=== PATIENT | female | born 1945 | race Caucasian/White ===

== ENCOUNTER → 2020-07-20 | Outpatient (CLI) | payer MEDICARE ==
[~2020-07-20] MED LIST: AEC81 PO; ALLO100T PO; CAND1TAB34 PO; GLIM2TAB PO; INDO-15 PO; ISOS60TA77 PO; LANTUS SQ; LEVO150 PO; LORA0.5T2 PO; MAGNESIUM OXIDE PO; METF-444 PO; MULT-1258 PO
== END | disposition home or self-care (01) ==
LOC: SHCH 12:58
PROVIDERS: ATTEND Internal Medicine Cardiovascular Disease
DX: R01.1 Cardiac murmur, unspecified (principal)
CPT/HCPCS: 93306; 93356

== ENCOUNTER 2020-08-31 10:00 | Observation (INO) | payer MEDICARE ==
[~2020-08-31] VITALS: Ht 167.6 cm; Wt 86.0 kg
[~2020-08-31 10:00] MED LIST changes: -LORA0.5T2 PO; -MAGNESIUM OXIDE PO
[2020-08-31 10:13] LABS: BASOPHILS % (AUTO) 1.4 % (0.0-5.0); EOSINOPHILS % (AUTO) 3.7 % (0.0-8.0); HEMATOCRIT 46.5 % (36-48); MEAN CORPUSCULAR HEMOGLOBIN 30.6 pg (27.0-33.0); MEAN CORPUSCULAR HGB CONC 32.7 g/dL (32.0-36.0); MEAN CORPUSCULAR VOLUME 93.6 fL (79-99); MONOCYTES % (AUTO) 8.1 % (3.0-13.0); NEUTROPHILS % (AUTO) 70.2 % (40.0-77.0); PLATELET COUNT (AUTO) 331 K/uL (130-400); RED BLOOD CELL COUNT(AUTO) 4.97 MIL/uL (4.00-5.50); RED CELL DISTRIBUTION WIDTH 13.4 % (11.0-15.5); WHITE BLOOD COUNT (AUTO) 8.8 K/uL (4.8-10.8)
[2020-08-31 10:32] LABS: APPEARANCE,URINE Clear (CLEAR); BILIRUBIN,URINE Negative (NEGATIVE); COLOR,URINE Yellow (YELLOW); GLUCOSE, URINE (UA) >=1000 mg/dL (NEGATIVE); KETONES,URINE Negative (NEGATIVE); LEUKOCYTE ESTERASE ,URINE Negative (NEGATIVE); NITRATE,URINE Negative (NEGATIVE); OCCULT BLOOD,URINE Negative (NEGATIVE); PROTEIN,URINE Negative (NEGATIVE); UROBILINOGEN,URINE 0.2 mg/dL (0.2-1.0)
[2020-08-31 10:37] LABS: PROTHROMBIN TIME 10.9 SEC (9.6-11.6)
[2020-08-31 10:38] LABS: BACTERIA,URINE Rare /HPF (None Seen); RBC,URINE 0-1 /HPF (0-1); SQUAMOUS EPITHELIAL CELL,UR Rare /HPF (0-2); WBC,URINE 0-1 /HPF (0-1)
[2020-08-31 13:40] LABS: CREATININE 1.2 mg/dL (0.5-1.5); POTASSIUM 4.5 mmol/L (3.5-5.1)
[2020-09-01 09:43] VITALS: BP 135/74
[2020-09-01] MEDS ORDERED: EMPA25TA PO (13:13)
[2020-09-01] MEDS ORDERED: MAGN400T51 PO ×2 (13:13)
[2020-09-01] MEDS ORDERED: ELDERBERRY PO (13:13)
[2020-09-01] MEDS ORDERED: VITAMIN D3 PO (13:13)
[2020-09-01] MEDS ORDERED: CYAN250010 PO (13:13)
[2020-09-01] MEDS ORDERED: ZINC50TA15 PO (13:13)
[2020-09-01] MEDS ORDERED: ASCO100031 PO (13:13)
[2020-09-01] MEDS ORDERED: IRON PO (13:13)
[2020-09-01] MEDS ORDERED: BIOT10006 PO (13:13)
[2020-09-04] VITALS (23 sets, daily range): BP systolic 101–143; BP diastolic 57–75
[2020-09-04] MEDS: CEFAZOLIN SODIUM 1 GM VIAL IVP SCH ×3 (06:00→19:20)
[2020-09-04] MEDS ORDERED: 0.9%NACL 1000ML 1,000 ML IV ONE (06:57)
[2020-09-04] MEDS: VANCOMYCIN 1G 1.25 GM in 0.9% NACL 250ML 250 ML IV SCH ×2 (07:15→09:30)
[2020-09-04] MEDS ORDERED: CEFAZOLIN SODIUM 1 GM VIAL ONE (08:54)
[2020-09-04] MEDS ORDERED: MIDAZOLAM HCL 1 MG/ML 2ML VIAL ONE (09:36)
[2020-09-04] MEDS ORDERED: ONDANSETRON 4MG INJ ONE (09:36)
[2020-09-04] MEDS ORDERED: LIDOCAINE PF 100MG/5ML (2%) SYRINGE 5ML ONE (09:41)
[2020-09-04] MEDS ORDERED: PROPOFOL 10 MG/ML 20ML VIAL IV ONE (09:42)
[2020-09-04] MEDS ORDERED: ROCURONIUM 10MG/1ML SYR 10 MG/ML ML ONE ×2 (09:42→10:42)
[2020-09-04] MEDS ORDERED: ROPIVACAINE 0.5% 5MG/ML 30ML IJ ONE (09:47)
[2020-09-04] MEDS ORDERED: DEXAMETHASONE SOD PHOSPHATE 4 MG/ML 1ML VIAL ONE ×2 (10:00→13:38)
[2020-09-04] MEDS ORDERED: TRANEXAMIC ACID 1000MG/10ML ONE ×2 (10:29→14:21)
[2020-09-04] MEDS ORDERED: GLYCOPYRROLATE 1 MG/5 ML SYRINGE ONE ×2 (10:43→13:37)
[2020-09-04] MEDS ORDERED: EPHEDRINE SULFATE 50 MG/ML AMPULE ONE (10:48)
[2020-09-04] MEDS ORDERED: VANCOMYCIN 1G VIAL ONE (13:01)
[2020-09-04] MEDS ORDERED: NEOSTIGMINE 5MG/5ML SYR IV ONE (13:36)
[2020-09-04] MEDS ORDERED: MEPERIDINE-PF 25 MG/ML SYG ONE (13:36)
[2020-09-04] MEDS ORDERED: CALCIUM CARB 500MG PO PRN (13:45)
[2020-09-04] MEDS ORDERED: TEMAZEPAM 15 MG CAPSULE PO PRN (13:45)
[2020-09-04] MEDS ORDERED: POTASSIUM CHLORIDE 10% ELIXIR 20 MEQ/15 ML UDCUP PO PRN (13:45)
[2020-09-04] MEDS ORDERED: ONDANSETRON 4MG INJ IVP PRN (13:45)
[2020-09-04] MEDS ORDERED: POTASSIUM CHLORIDE 20MEQ/100ML 100 ML IV PRN (13:45)
[2020-09-04] MEDS ORDERED: FE FUMARATE/FA/MV, MIN COMB#15 1 TAB PO PRN (13:45)
[2020-09-04] MEDS: ACETAMINOPHEN 500 MG TABLET PO SCH ×2 (13:45→21:46)
[2020-09-04] MEDS ORDERED: KETOROLAC 15MG/ML VIAL (15MG/ML) IV PRN (13:45)
[2020-09-04] MEDS ORDERED: OXYCODONE HCL 5 MG TAB PO PRN (13:45)
[2020-09-04] MEDS ORDERED: DiphenhydrAMINE HCL 50 MG/ML VIAL IVP PRN (13:45)
[2020-09-04] MEDS ORDERED: KCL 20 MEQ ERTAB PO PRN (13:45)
[2020-09-04] MEDS ORDERED: LIDOCAINE HCL-MPF 1% 2ML VIAL IV PRN (13:45)
[2020-09-04] MEDS: 0.9%NACL 1000ML 1,000 ML IV SCH (15:41)
[2020-09-04] MEDS: INSULIN HUMULIN R 100 UNIT/ML 3ML SQ SCH ×2 (16:30→21:43)
[2020-09-04] MEDS: METFORMIN HCL 500 MG TABLET PO SCH ×2 (16:39→21:07)
[2020-09-04] MEDS: HYDROCHLOROTHIAZID PO SCH (16:39)
[2020-09-04] MEDS: CANDESARTAN PO SCH (16:39)
[2020-09-04] MEDS: GLIMEPIRIDE 2 MG TABLET PO SCH (16:39)
[2020-09-04] MEDS: MAGNESIUM OXIDE 400 MG TABLET PO SCH (16:46)
[2020-09-04] MEDS ORDERED: MAGNESIUM OXIDE 400 MG TABLET PO SCH ×2 (17:00)
[2020-09-04] MEDS: VANCOMYCIN KIT 250 ML IV SCH (20:56)
[2020-09-04] MEDS ORDERED: LANTUS SQ SCH (21:00)
[2020-09-04] MEDS: INSULIN GLARGINE 100 UNITS/ML 10 ML VIAL SQ SCH (21:05)
[2020-09-04] MEDS: FAMOTIDINE 20MG TAB PO SCH (21:07)
[2020-09-04] MEDS: ALLOPURINOL 100 MG TABLET PO SCH (21:07)
[2020-09-04] MEDS: INDOMETHACIN 25 MG CAP PO SCH (21:07)
[2020-09-04] MEDS: ASPIRIN 81MG CHEW TAB PO SCH (21:07)
[2020-09-04] MEDS: ISOSORBIDE MONO 60MG SR TAB PO SCH (21:07)
[2020-09-04] MEDS: MULTIVITAMIN WITH MINERALS TABLET PO SCH (21:07)
[2020-09-04] MEDS: PREGABALIN 25 MG CAP PO SCH (21:08)
[2020-09-04] MEDS: TRAMADOL HCL 50 MG TABLET PO PRN (21:09)
[2020-09-05] MEDS: CEFAZOLIN SODIUM 1 GM VIAL IVP SCH (03:28)
[2020-09-05] MEDS: 0.9%NACL 1000ML 1,000 ML IV SCH ×2 (03:30→09:45)
[2020-09-05 04:17] VITALS: BP 128/65
[2020-09-05 04:17] LABS: HEMATOCRIT 38.9 % (36-48); MEAN CORPUSCULAR HEMOGLOBIN 29.4 pg (27.0-33.0); MEAN CORPUSCULAR HGB CONC 31.9 g/dL (32.0-36.0); MEAN CORPUSCULAR VOLUME 92.2 fL (79-99); RED BLOOD CELL COUNT(AUTO) 4.22 MIL/uL (4.00-5.50); RED CELL DISTRIBUTION WIDTH 13.5 % (11.0-15.5); WHITE BLOOD COUNT (AUTO) 11.7 K/uL (4.8-10.8)
[2020-09-05 04:27] LABS: CREATININE 1.2 mg/dL (0.5-1.5); POTASSIUM 4.4 mmol/L (3.5-5.1)
[2020-09-05] MEDS: ACETAMINOPHEN 500 MG TABLET PO SCH ×2 (06:16→22:02)
[2020-09-05] MEDS: INSULIN HUMULIN R 100 UNIT/ML 3ML SQ SCH ×4 (06:16→21:00)
[2020-09-05] MEDS: LEVOTHYROXINE 150 MCG TABLET PO SCH (07:00)
[2020-09-05] MEDS: VANCOMYCIN KIT 250 ML IV SCH (07:00)
[2020-09-05 08:28] VITALS: BP 108/59
[2020-09-05] MEDS: INSULIN GLARGINE 100 UNITS/ML 10 ML VIAL SQ SCH ×2 (09:00→22:05)
[2020-09-05] MEDS: VITAMIN D3 2000 UNIT PO SCH (09:00)
[2020-09-05] MEDS: METFORMIN HCL 500 MG TABLET PO SCH ×4 (09:00→21:59)
[2020-09-05] MEDS: BIOTIN 10000 MCG PO SCH (09:00)
[2020-09-05] MEDS: ***HM*** (Empagliflozin (Jardiance) 25 MG) PO SCH (09:00)
[2020-09-05] MEDS: CANDESARTAN PO SCH (10:15)
[2020-09-05] MEDS: HYDROCHLOROTHIAZID PO SCH (10:15)
[2020-09-05] MEDS: FERROUS SULFATE 325 MG TABLET.DR PO SCH (10:18)
[2020-09-05] MEDS: ASPIRIN 81MG CHEW TAB PO SCH ×2 (10:18→21:59)
[2020-09-05] MEDS: POLYETHYLENE GLYCOL 3350 17 GM POWD.PACK PO SCH (10:18)
[2020-09-05] MEDS: OXYCODONE HCL 5 MG TAB PO PRN (10:21)
[2020-09-05] MEDS: PREGABALIN 25 MG CAP PO SCH ×2 (10:21→21:59)
[2020-09-05] MEDS: MAGNESIUM OXIDE 400 MG TABLET PO SCH ×3 (10:21→17:12)
[2020-09-05] MEDS: GLIMEPIRIDE 2 MG TABLET PO SCH ×2 (10:21→17:12)
[2020-09-05] MEDS: CYANOCOBALAMIN (VITAMIN B-12) 1,000 MCG TABLET PO SCH (10:22)
[2020-09-05] MEDS: MULTIVITAMIN WITH MINERALS TABLET PO SCH ×2 (10:22→21:59)
[2020-09-05] MEDS: ASCORBIC ACID 500 MG TAB PO SCH (10:22)
[2020-09-05 11:45] VITALS: BP 102/60
[2020-09-05] MEDS ORDERED: MAGNESIUM OXIDE 800 MG PO SCH (12:00)
[2020-09-05] MEDS: TRAMADOL HCL 50 MG TABLET PO PRN (13:21)
[2020-09-05 17:11] VITALS: BP 107/57
[2020-09-05 20:08] VITALS: BP 110/54
[2020-09-05] MEDS: ALLOPURINOL 100 MG TABLET PO SCH (21:59)
[2020-09-05] MEDS: INDOMETHACIN 25 MG CAP PO SCH (22:00)
[2020-09-05] MEDS: FAMOTIDINE 20MG TAB PO SCH (22:00)
[2020-09-05] MEDS: ISOSORBIDE MONO 60MG SR TAB PO SCH (22:00)
[2020-09-05] MEDS ORDERED: BISACODYL 5 MG TABLET.DR PO ONE (22:27)
[2020-09-05 23:34] VITALS: BP 123/57
[2020-09-06 03:55] VITALS: BP 124/57
[2020-09-06] MEDS: ACETAMINOPHEN 500 MG TABLET PO SCH ×3 (05:45→20:48)
[2020-09-06] MEDS: INSULIN HUMULIN R 100 UNIT/ML 3ML SQ SCH ×4 (07:23→21:00)
[2020-09-06] MEDS: LEVOTHYROXINE 150 MCG TABLET PO SCH (07:30)
[2020-09-06] MEDS: FERROUS SULFATE 325 MG TABLET.DR PO SCH (07:35)
[2020-09-06] MEDS: GLIMEPIRIDE 2 MG TABLET PO SCH ×2 (07:36→16:37)
[2020-09-06] MEDS: MULTIVITAMIN WITH MINERALS TABLET PO SCH ×2 (07:36→21:00)
[2020-09-06] MEDS: METFORMIN HCL 500 MG TABLET PO SCH ×4 (07:36→21:00)
[2020-09-06] MEDS: VITAMIN D3 2000 UNIT PO SCH (07:37)
[2020-09-06] MEDS: ***HM*** (Empagliflozin (Jardiance) 25 MG) PO SCH (07:37)
[2020-09-06] MEDS: PREGABALIN 25 MG CAP PO SCH ×2 (07:37→21:26)
[2020-09-06] MEDS: BIOTIN 10000 MCG PO SCH (07:37)
[2020-09-06] MEDS: CYANOCOBALAMIN (VITAMIN B-12) 1,000 MCG TABLET PO SCH (07:38)
[2020-09-06] MEDS: ASCORBIC ACID 500 MG TAB PO SCH (07:38)
[2020-09-06] MEDS: MAGNESIUM OXIDE 400 MG TABLET PO SCH ×3 (07:43→16:37)
[2020-09-06] MEDS: ASPIRIN 81MG CHEW TAB PO SCH ×2 (07:43→21:00)
[2020-09-06 08:00] VITALS: BP 121/68
[2020-09-06] MEDS: POLYETHYLENE GLYCOL 3350 17 GM POWD.PACK PO SCH (08:02)
[2020-09-06] MEDS: OXYCODONE HCL 5 MG TAB PO PRN ×4 (08:03→21:24)
[2020-09-06] MEDS: INSULIN GLARGINE 100 UNITS/ML 10 ML VIAL SQ SCH ×2 (08:08→21:34)
[2020-09-06 12:00] VITALS: BP 114/64
[2020-09-06] MEDS ORDERED: BISACODYL 10 MG SUPP.RECT RC ONE (12:44)
[2020-09-06 16:00] VITALS: BP 132/72
[2020-09-06] MEDS: CANDESARTAN PO SCH (16:37)
[2020-09-06] MEDS: HYDROCHLOROTHIAZID PO SCH (16:37)
[2020-09-06] MEDS ORDERED: HYDR-4060 PO (18:36)
[2020-09-06 20:08] VITALS: BP 134/62
[2020-09-06] MEDS: ISOSORBIDE MONO 60MG SR TAB PO SCH (21:00)
[2020-09-06] MEDS: FAMOTIDINE 20MG TAB PO SCH (21:00)
[2020-09-06] MEDS: ALLOPURINOL 100 MG TABLET PO SCH (21:00)
[2020-09-06] MEDS: INDOMETHACIN 25 MG CAP PO SCH (21:00)
[2020-09-07 00:08] VITALS: BP 133/62
[2020-09-07 04:08] VITALS: BP 101/59
[2020-09-07] MEDS: LEVOTHYROXINE 150 MCG TABLET PO SCH (05:27)
[2020-09-07] MEDS: ACETAMINOPHEN 500 MG TABLET PO SCH (05:27)
[2020-09-07] MEDS: INSULIN HUMULIN R 100 UNIT/ML 3ML SQ SCH (05:31)
[2020-09-07 08:00] VITALS: BP 116/63
[2020-09-07] MEDS: GLIMEPIRIDE 2 MG TABLET PO SCH (08:00)
[2020-09-07] MEDS: FERROUS SULFATE 325 MG TABLET.DR PO SCH (08:00)
[2020-09-07] MEDS: MAGNESIUM OXIDE 400 MG TABLET PO SCH (08:00)
[2020-09-07] MEDS: MULTIVITAMIN WITH MINERALS TABLET PO SCH (08:34)
[2020-09-07] MEDS: BIOTIN 10000 MCG PO SCH (08:34)
[2020-09-07] MEDS: ***HM*** (Empagliflozin (Jardiance) 25 MG) PO SCH (08:34)
[2020-09-07] MEDS: VITAMIN D3 2000 UNIT PO SCH (08:34)
[2020-09-07] MEDS: METFORMIN HCL 500 MG TABLET PO SCH (08:34)
[2020-09-07] MEDS: ASCORBIC ACID 500 MG TAB PO SCH (08:35)
[2020-09-07] MEDS: CYANOCOBALAMIN (VITAMIN B-12) 1,000 MCG TABLET PO SCH (08:35)
[2020-09-07] MEDS: PREGABALIN 25 MG CAP PO SCH (08:46)
[2020-09-07] MEDS: OXYCODONE HCL 5 MG TAB PO PRN (08:46)
[2020-09-07] MEDS: ASPIRIN 81MG CHEW TAB PO SCH (08:47)
[2020-09-07] MEDS: POLYETHYLENE GLYCOL 3350 17 GM POWD.PACK PO SCH (08:47)
[2020-09-07] MEDS: INSULIN GLARGINE 100 UNITS/ML 10 ML VIAL SQ SCH (08:53)
[2020-09-07] MEDS ORDERED: BISACODYL 10 MG SUPP.RECT RC PRN (13:45)
== END 2020-09-07 12:34 | disposition home or self-care (01) ==
LOC: EDSTATUS 10:00 → OBSVTOIN 09-04 06:18 → DAHIP 09-04 06:18 → INTOOBSV 09-04 06:18 → 4AH 09-04 15:01
PROVIDERS: ADMIT Orthopaedic Surgery; ATTEND Orthopaedic Surgery
DX: M75.101 Unspecified rotator cuff tear or rupture of right shoulder, not specified as traumatic (principal); Z20.822 Contact with and (suspected) exposure to COVID-19; I10 Essential (primary) hypertension; E78.5 Hyperlipidemia, unspecified; E11.9 Type 2 diabetes mellitus without complications; E03.9 Hypothyroidism, unspecified; D64.9 Anemia, unspecified; G89.29 Other chronic pain; Z96.612 Presence of left artificial shoulder joint; Z96.611 Presence of right artificial shoulder joint; Z96.643 Presence of artificial hip joint, bilateral; Z90.710 Acquired absence of both cervix and uterus; Z90.49 Acquired absence of other specified parts of digestive tract; Z79.899 Other long term (current) drug therapy; Z82.49 Family history of ischemic heart disease and other diseases of the circulatory system
CPT/HCPCS: 23474; 36415 ×2; 73030; 80048 ×2; 81001; 82948 ×14; 85025; 85027; 85610; 87070; 87076; 87088; 87205; 87641; 88300; 96361 ×4; 96365; 96366 ×2; 96375 ×2; 96376; 97039 ×3; 97116 ×3; 97161; 97530 ×5; A4215; A4221; A4222; A4223; A4565; A4649 ×3; A4663; A4930 ×4; A6206; C1713 ×3; C1776 ×4; G0168; G0378 ×48; G8978; G8979; G8980; G8981; G8982; G8983; J0690 ×4; J1100 ×2; J1815 ×2; J1885; J2001; J2175; J2250; J2405 ×2; J2704; J2710; J2795; J3370 ×4; J3490 ×4; J7030 ×2; J7040; J7050; U0003

== ENCOUNTER → 2020-10-30 | Outpatient (CLI) | payer MEDICARE ==
[~2020-10-30] MED LIST changes: +ASCO100031 PO; +BIOT10006 PO; +CYAN250010 PO; +ELDERBERRY PO; +EMPA25TA PO; +HYDR-4060 PO; +IRON PO; +MAGN400T51 PO; +VITAMIN D3 PO; +ZINC50TA15 PO
== END | disposition home or self-care (01) ==
LOC: SHCH 09:20
PROVIDERS: ATTEND Internal Medicine Cardiovascular Disease
DX: Z09 Encounter for follow-up examination after completed treatment for conditions other than malignant neoplasm (principal); I87.2 Venous insufficiency (chronic) (peripheral)
CPT/HCPCS: 93971

== ENCOUNTER → 2020-11-20 | Outpatient (CLI) | payer MEDICARE | END | disposition home or self-care (01) | LOC: SHCH 13:05 | PROVIDERS: ATTEND Internal Medicine Cardiovascular Disease | DX: Z09 Encounter for follow-up examination after completed treatment for conditions other than malignant neoplasm (principal); I87.2 Venous insufficiency (chronic) (peripheral) | CPT/HCPCS: 93971 ==

== ENCOUNTER → 2021-03-19 | Outpatient (CLI) | payer MEDICARE | END | disposition home or self-care (01) | LOC: SHCH 08:38 | PROVIDERS: ATTEND Internal Medicine Cardiovascular Disease | DX: I87.2 Venous insufficiency (chronic) (peripheral) (principal); Z09 Encounter for follow-up examination after completed treatment for conditions other than malignant neoplasm; Z98.890 Other specified postprocedural states | CPT/HCPCS: 93970 ==

== ENCOUNTER → 2021-06-25 | Outpatient (CLI) | payer MEDICARE | END | disposition home or self-care (01) | LOC: RAH 10:49 | PROVIDERS: ATTEND Internal Medicine Gastroenterology | DX: K30 Functional dyspepsia (principal) | CPT/HCPCS: 78264; A9541 ==

== ENCOUNTER → 2022-03-14 | Outpatient (CLI) | payer MEDICARE | END | disposition home or self-care (01) | LOC: RAH 15:17 | PROVIDERS: ATTEND Anesthesiology Pain Medicine | DX: M47.812 Spondylosis without myelopathy or radiculopathy, cervical region (principal); M54.2 Cervicalgia | CPT/HCPCS: 72040 ==

== ENCOUNTER 2022-04-09 14:00 | Observation (INO) | payer MEDICARE ==
[~2022-04-09] VITALS: Ht 162.6 cm; Wt 84.5 kg
[2022-04-09 10:31] LABS: BASOPHILS % (AUTO) 1.2 % (0.0-5.0); EOSINOPHILS % (AUTO) 2.5 % (0.0-8.0); HEMATOCRIT 47.3 % (36-48); LYMPHOCYTES % (AUTO) 17.9 % (21.0-51.0); MEAN CORPUSCULAR HGB CONC 32.1 g/dL (32.0-36.0); MEAN CORPUSCULAR VOLUME 93.3 fL (79-99); MONOCYTES % (AUTO) 7.9 % (3.0-13.0); NEUTROPHILS % (AUTO) 69.4 % (40.0-77.0); PLATELET COUNT (AUTO) 329 K/uL (130-400); RED BLOOD CELL COUNT(AUTO) 5.07 MIL/uL (4.00-5.50); RED CELL DISTRIBUTION WIDTH 13.5 % (11.0-15.5)
[2022-04-09 10:44] LABS: INR 0.95 (0.85-1.15); PROTHROMBIN TIME 10.4 SEC (9.6-11.6)
[2022-04-09 10:45] LABS: PARTIAL THROMBOPLASTIN TIME 28.9 SEC (26.3-35.5)
[2022-04-09 10:49] LABS: APPEARANCE,URINE CLEAR (CLEAR); BILIRUBIN,URINE NEGATIVE (NEGATIVE); COLOR,URINE LIGHT-YELLOW (YELLOW); GLUCOSE, URINE (UA) >=1000 mg/dL (NEGATIVE); KETONES,URINE NEGATIVE (NEGATIVE); LEUKOCYTE ESTERASE ,URINE NEGATIVE Leu/uL (NEGATIVE); NITRATE,URINE NEGATIVE (NEGATIVE); OCCULT BLOOD,URINE NEGATIVE (NEGATIVE); PROTEIN,URINE NEGATIVE (NEGATIVE); UROBILINOGEN,URINE 0.2 mg/dL (0.2-1.0)
[2022-04-09 10:54] LABS: ALBUMIN 3.9 g/dL (3.5-5.0); CREATININE 1.2 mg/dL (0.5-1.5); CRP QUANTITATIVE 2.8 mg/L (0.00-9.0); POTASSIUM 4.2 mmol/L (3.5-5.1)
[2022-04-09 10:55] LABS: BACTERIA,URINE RARE /HPF (None Seen); MUCUS,URINE RARE LPF (None Seen); SQUAMOUS EPITHELIAL CELL,UR RARE /HPF (0-2); WBC,URINE 0-1 /HPF (0-1)
[2022-04-09 11:04] VITALS: BP 122/61
[~2022-04-09 14:00] MED LIST changes: -ASCO100031 PO; -BIOT10006 PO; -CYAN250010 PO; +CYAN250014 PO; -ELDERBERRY PO; -HYDR-4060 PO; -INDO-15 PO; +INSLAN SQ; -IRON PO; -LANTUS SQ; -VITAMIN D3 PO; -ZINC50TA15 PO
[2022-04-10] VITALS (23 sets, daily range): BP systolic 90–131; BP diastolic 54–86
[2022-04-10] MEDS ORDERED: 0.9%NACL 1000ML 1,000 ML IV ONE (09:06)
[2022-04-10] MEDS: CEFAZOLIN SODIUM 2 GM VIAL IVPB SCH ×2 (09:44→13:28)
[2022-04-10] MEDS ORDERED: REGADENOSON 0.4 MG/5 ML PF SYG IVP SCH (10:00)
[2022-04-10] MEDS ORDERED: ROPIVACAINE 0.5% 5MG/ML 30ML IJ ONE ×2 (11:22→13:47)
[2022-04-10] MEDS ORDERED: TRANEXAMIC ACID 1000MG/10ML ONE (11:22)
[2022-04-10] MEDS ORDERED: KETOROLAC 30MG VIAL (30MG/ML) ONE (11:22)
[2022-04-10] MEDS ORDERED: ROCURONIUM 10MG/1ML SYR 10 MG/ML ML ONE (13:14)
[2022-04-10] MEDS ORDERED: FENTANYL CITRATE PF 50 MCG/1 ML 2ML VIAL ONE ×2 (13:14→15:30)
[2022-04-10] MEDS ORDERED: LIDOCAINE PF 100MG/5ML (2%) SYRINGE 5ML ONE (13:14)
[2022-04-10] MEDS ORDERED: PROPOFOL 10 MG/ML 20ML VIAL IV ONE (13:14)
[2022-04-10] MEDS ORDERED: PHENYLEPHRINE HCL 10 MG/ML 1ML VIAL IV ONE (13:47)
[2022-04-10] MEDS: TRANEXAMIC ACID 1000MG/10ML ONE ×2 (14:00→15:08)
[2022-04-10] MEDS ORDERED: ONDANSETRON 4MG INJ ONE (14:07)
[2022-04-10] MEDS ORDERED: DEXAMETHASONE SOD PHOSPHATE 10MG/ML 1ML VIAL ONE (14:08)
[2022-04-10] MEDS ORDERED: GLYCOPYRROLATE 1 MG/5 ML SYRINGE ONE (14:44)
[2022-04-10] MEDS ORDERED: NEOSTIGMINE 5MG/5ML SYR IV ONE (15:10)
[2022-04-10] MEDS ORDERED: FERROUS FUMARATE 324 MG TABLET PO PRN (15:30)
[2022-04-10] MEDS ORDERED: KCL 20 MEQ ERTAB PO PRN (15:30)
[2022-04-10] MEDS ORDERED: DiphenhydrAMINE HCL 50 MG/ML VIAL IVP PRN (15:30)
[2022-04-10] MEDS ORDERED: POTASSIUM CHLORIDE 20MEQ/100ML 100 ML IV PRN (15:30)
[2022-04-10] MEDS ORDERED: LIDOCAINE HCL-MPF 1% 2ML VIAL IV PRN (15:30)
[2022-04-10] MEDS ORDERED: POTASSIUM CHLORIDE 10% ELIXIR 20 MEQ/15 ML UDCUP PO PRN (15:30)
[2022-04-10] MEDS ORDERED: ONDANSETRON 4MG INJ IVP PRN (15:30)
[2022-04-10] MEDS ORDERED: MEPERIDINE-PF 25 MG/ML SYG ONE ×2 (16:14→16:37)
[2022-04-10] MEDS: KETOROLAC 15MG/ML VIAL (15MG/ML) IV SCH (16:20)
[2022-04-10] MEDS: 0.9%NACL 1000ML 1,000 ML IV SCH (17:25)
[2022-04-10] MEDS: CYCLOBENZAPRINE HCL 10 MG TABLET PO PRN (17:34)
[2022-04-10] MEDS: HYDROCODONE/ACETAMINOPHEN 5/325 MG TAB PO PRN ×2 (17:35→21:11)
[2022-04-10] MEDS: CEFAZOLIN SODIUM 2 GM VIAL IVP SCH (20:24)
[2022-04-10] MEDS: INSULIN GLARGINE 100 UNITS/ML 10 ML VIAL SQ SCH (20:26)
[2022-04-10] MEDS: ALLOPURINOL 100 MG TABLET PO SCH (20:26)
[2022-04-10] MEDS: DOCUSATE SODIUM 100 MG CAP PO SCH (20:27)
[2022-04-10] MEDS: MULTIVITAMIN TABLET PO SCH (20:27)
[2022-04-10] MEDS: ISOSORBIDE MONO 60MG SR TAB PO SCH (20:27)
[2022-04-10] MEDS: GABAPENTIN 100 MG CAPSULE PO SCH (20:33)
[2022-04-10] MEDS: AMARYL 2MG PO SCH (21:00)
[2022-04-10] MEDS: CANDESARTAN PO SCH (21:00)
[2022-04-10] MEDS: HYDROCHLOROTHIAZIDE PO SCH (21:00)
[2022-04-11] VITALS (7 sets, daily range): BP systolic 101–141; BP diastolic 52–71
[2022-04-11] MEDS: KETOROLAC 15MG/ML VIAL (15MG/ML) IV SCH ×2 (00:12→06:27)
[2022-04-11] MEDS: 0.9%NACL 1000ML 1,000 ML IV SCH ×2 (01:30→11:30)
[2022-04-11] MEDS: CEFAZOLIN SODIUM 2 GM VIAL IVP SCH (04:33)
[2022-04-11 05:05] LABS: HEMATOCRIT 39.5 % (36-48); MEAN CORPUSCULAR HEMOGLOBIN 30.2 pg (27.0-33.0); MEAN CORPUSCULAR HGB CONC 32.4 g/dL (32.0-36.0); MEAN CORPUSCULAR VOLUME 93.2 fL (79-99); RED BLOOD CELL COUNT(AUTO) 4.24 MIL/uL (4.00-5.50); RED CELL DISTRIBUTION WIDTH 13.5 % (11.0-15.5); WHITE BLOOD COUNT (AUTO) 12.2 K/uL (4.8-10.8)
[2022-04-11 05:19] LABS: CREATININE 1.2 mg/dL (0.5-1.5); POTASSIUM 4.3 mmol/L (3.5-5.1)
[2022-04-11] MEDS: LEVOTHYROXINE 150 MCG TABLET PO SCH (06:27)
[2022-04-11] MEDS: ASPIRIN 325MG TAB PO SCH (07:58)
[2022-04-11] MEDS: GABAPENTIN 100 MG CAPSULE PO SCH ×3 (07:58→19:43)
[2022-04-11] MEDS: METFORMIN HCL 500 MG TABLET PO SCH ×2 (08:00→16:59)
[2022-04-11] MEDS: INSULIN GLARGINE 100 UNITS/ML 10 ML VIAL SQ SCH ×2 (08:05→19:54)
[2022-04-11] MEDS: HYDROCHLOROTHIAZIDE PO SCH ×2 (08:06→19:44)
[2022-04-11] MEDS: HYDROCODONE/ACETAMINOPHEN 5/325 MG TAB PO PRN ×3 (08:06→15:24)
[2022-04-11] MEDS: AMARYL 2MG PO SCH ×2 (08:06→19:44)
[2022-04-11] MEDS: DOCUSATE SODIUM 100 MG CAP PO SCH ×2 (08:06→19:43)
[2022-04-11] MEDS: CANDESARTAN PO SCH ×2 (08:06→19:44)
[2022-04-11] MEDS: MAGNESIUM OXIDE 400 MG TABLET PO SCH (08:07)
[2022-04-11] MEDS: CYANOCOBALAMIN PO SCH (08:07)
[2022-04-11] MEDS: MULTIVITAMIN TABLET PO SCH ×2 (08:07→19:43)
[2022-04-11] MEDS: POLYETHYLENE GLYCOL 3350 17 GM POWD.PACK PO SCH (08:07)
[2022-04-11] MEDS: JARDIANCE 25MG PO SCH (08:07)
[2022-04-11] MEDS: CALCIUM CARB 500MG PO PRN ×2 (15:25→19:43)
[2022-04-11] MEDS: CYCLOBENZAPRINE HCL 10 MG TABLET PO PRN (15:25)
[2022-04-11] MEDS: ALLOPURINOL 100 MG TABLET PO SCH (19:44)
[2022-04-11] MEDS: ISOSORBIDE MONO 60MG SR TAB PO SCH (19:44)
[2022-04-11] MEDS: KETOROLAC 15MG/ML VIAL (15MG/ML) IV PRN (19:46)
[2022-04-12] VITALS: BP 111/63
[2022-04-12] MEDS: HYDROCODONE/ACETAMINOPHEN 5/325 MG TAB PO PRN ×3 (01:13→18:13)
[2022-04-12] MEDS: CYCLOBENZAPRINE HCL 10 MG TABLET PO PRN ×2 (01:44→12:59)
[2022-04-12] MEDS: KETOROLAC 15MG/ML VIAL (15MG/ML) IV PRN ×2 (02:55→10:12)
[2022-04-12 04:00] VITALS: BP 105/57
[2022-04-12] MEDS: LEVOTHYROXINE 150 MCG TABLET PO SCH (06:17)
[2022-04-12 08:00] VITALS: BP 104/57
[2022-04-12] MEDS: METFORMIN HCL 500 MG TABLET PO SCH ×2 (08:00→17:00)
[2022-04-12] MEDS: INSULIN GLARGINE 100 UNITS/ML 10 ML VIAL SQ SCH (08:19)
[2022-04-12] MEDS: ASPIRIN 325MG TAB PO SCH (08:24)
[2022-04-12] MEDS: DOCUSATE SODIUM 100 MG CAP PO SCH (08:25)
[2022-04-12] MEDS: GABAPENTIN 100 MG CAPSULE PO SCH ×2 (08:25→14:47)
[2022-04-12] MEDS: HYDROCHLOROTHIAZIDE PO SCH (08:26)
[2022-04-12] MEDS: CANDESARTAN PO SCH (08:26)
[2022-04-12] MEDS: AMARYL 2MG PO SCH (08:26)
[2022-04-12] MEDS: POLYETHYLENE GLYCOL 3350 17 GM POWD.PACK PO SCH (08:27)
[2022-04-12] MEDS: MAGNESIUM OXIDE 400 MG TABLET PO SCH (08:27)
[2022-04-12] MEDS: JARDIANCE 25MG PO SCH (08:27)
[2022-04-12] MEDS: CYANOCOBALAMIN PO SCH (08:27)
[2022-04-12] MEDS: MULTIVITAMIN TABLET PO SCH (08:27)
[2022-04-12] MEDS ORDERED: CYCL-309 PO (11:12)
[2022-04-12] MEDS ORDERED: HYDR-4060 PO (11:12)
[2022-04-12] MEDS ORDERED: POLY17PO4 PO (11:12)
[2022-04-12] MEDS ORDERED: ASPI-1026 PO (11:12)
[2022-04-12] MEDS ORDERED: GABA100C PO (11:12)
[2022-04-12 11:19] VITALS: BP 106/55
[2022-04-12] MEDS ORDERED: BISACODYL 10 MG SUPP.RECT RC ONE (12:44)
[2022-04-12] MEDS ORDERED: LACTULOSE 20 GM/30 ML UDCUP PO ONE (15:30)
[2022-04-13] MEDS ORDERED: BISACODYL 10 MG SUPP.RECT RC PRN (15:30)
== END 2022-04-12 19:20 ==
LOC: DAHIP 04-10 08:27 → EDSTATUS 04-10 14:00 → 4BH 04-10 17:23
PROVIDERS: ADMIT Student in an Organized Health Care Education/Training Program; ATTEND Student in an Organized Health Care Education/Training Program
DX: M17.11 Unilateral primary osteoarthritis, right knee (principal); Z20.822 Contact with and (suspected) exposure to COVID-19
CPT/HCPCS: 82040; 80048 ×2; 85025; 85610; 85730; 87088; 84134; 86140; 87426; 81001; 36415 ×2; 87641; 27447; 96374; 96375; 82948 ×10; 73560; 97039 ×4; 96376 ×2; 85027; 97161; 97116 ×4; 97530 ×3; G0378 ×48; A4663; A4215 ×2; J3010 ×2; J3490 ×3; J1100; J2710; J7030; J2001; J2704; J2405; J1885 ×7; J2175 ×2; J2795 ×2; J2370; J0690 ×3; G0168; A4649 ×4; C1776; A6255; A5120; A4223; A4222; A4221; J2785

== ENCOUNTER → 2022-10-03 | Outpatient (CLI) | payer MEDICARE ==
[~2022-10-03] MED LIST changes: -AEC81 PO; +ASPI-1026 PO; +CYCL-309 PO; +GABA100C PO; +HYDR-4060 PO; +POLY17PO4 PO
== END | disposition home or self-care (01) ==
LOC: RAH 10:04
PROVIDERS: ATTEND Anesthesiology Pain Medicine
DX: S23.110A Subluxation of T1/T2 thoracic vertebra, initial encounter (principal); M47.22 Other spondylosis with radiculopathy, cervical region; M51.14 Intervertebral disc disorders with radiculopathy, thoracic region; M48.02 Spinal stenosis, cervical region; X58.XXXA Exposure to other specified factors, initial encounter; Y93.89 Activity, other specified; Y92.89 Other specified places as the place of occurrence of the external cause; Y99.8 Other external cause status
CPT/HCPCS: 72141

== ENCOUNTER → 2022-12-12 | Outpatient (CLI) | payer MEDICARE | END | disposition home or self-care (01) | LOC: RAH 12:56 | PROVIDERS: ATTEND Anesthesiology Pain Medicine | DX: M48.07 Spinal stenosis, lumbosacral region (principal); M47.26 Other spondylosis with radiculopathy, lumbar region; M48.04 Spinal stenosis, thoracic region | CPT/HCPCS: 72148 ==

== ENCOUNTER → 2023-04-01 | Outpatient (CLI) | payer MEDICARE | END | disposition home or self-care (01) | LOC: SHCH 14:04 | PROVIDERS: ATTEND Internal Medicine Cardiovascular Disease | DX: I73.9 Peripheral vascular disease, unspecified (principal) | CPT/HCPCS: 93925 ==

== ENCOUNTER → 2023-04-02 | Outpatient (CLI) | payer MEDICARE | END | disposition home or self-care (01) | LOC: SHCH 12:18 | PROVIDERS: ATTEND Internal Medicine Cardiovascular Disease | DX: I87.2 Venous insufficiency (chronic) (peripheral) (principal); I80.201 Phlebitis and thrombophlebitis of unspecified deep vessels of right lower extremity | CPT/HCPCS: 93971 ==

== ENCOUNTER → 2023-05-21 | Outpatient (CLI) | payer MEDICARE | END | disposition home or self-care (01) | LOC: SHCH 15:03 | PROVIDERS: ATTEND Internal Medicine Cardiovascular Disease | DX: I80.201 Phlebitis and thrombophlebitis of unspecified deep vessels of right lower extremity (principal); R22.31 Localized swelling, mass and lump, right upper limb | CPT/HCPCS: 93971 ==

== ENCOUNTER → 2023-06-26 | Outpatient (CLI) | payer MEDICARE | END | disposition home or self-care (01) | LOC: SHCH 10:10 | PROVIDERS: ATTEND Internal Medicine Cardiovascular Disease | DX: I80.201 Phlebitis and thrombophlebitis of unspecified deep vessels of right lower extremity (principal); Z79.899 Other long term (current) drug therapy; I10 Essential (primary) hypertension; E78.5 Hyperlipidemia, unspecified; E11.9 Type 2 diabetes mellitus without complications; I87.2 Venous insufficiency (chronic) (peripheral) | CPT/HCPCS: 93971 ==

== ENCOUNTER → 2023-07-18 | Outpatient (CLI) | payer MEDICARE | END | disposition home or self-care (01) | LOC: SHCH 14:40 | PROVIDERS: ATTEND Internal Medicine Cardiovascular Disease | DX: I87.2 Venous insufficiency (chronic) (peripheral) (principal) | CPT/HCPCS: 93970 ==

== ENCOUNTER → 2024-08-03 | Outpatient (CLI) | payer MEDICARE | END | disposition home or self-care (01) | LOC: SHCH 14:42 | PROVIDERS: ATTEND Internal Medicine Cardiovascular Disease | DX: I08.8 Other rheumatic multiple valve diseases (principal); I11.9 Hypertensive heart disease without heart failure; R07.9 Chest pain, unspecified | CPT/HCPCS: 93306 ==

== ENCOUNTER → 2024-08-26 | Outpatient (CLI) | payer MEDICARE ==
[2024-08-26] MEDS: REGADENOSON 0.4 MG/5 ML PF SYG IVP ONE (15:41)
--- NOTE | 2024-08-27 09:47 | HMCSR ---
APPROVED REPORT Height: 5 ft 6in Weight: 183 lbs TEST INDICATIONS I25.119 ARTHROSCLORC HRT DZ NTV COR ART W UNSP ANG PCT The imaging protocol used to acquire images was Rest Tc-99m/stress Tc-99m 1 day Consent: The procedure was explained and understood by the patient. Informerd consent was witnessed Niko Mejia RN First, low dose rest was performed then high dose stress. RESTING DATA: The resting ekg shows: NSR Rest SPECT myocardial perfusion imaging was performed in supine position 69 minutes following the int ravenous injection of 11.5 mCi of Tc-99 Sestamibi. Time of rest injection: 809 Date: 08/26/2024 Time of rest imagin Date: 08/26/2024 PHARMACOLOGIC STRESS: Pharmacologic stress test was performed by injecting regadenoson 0.4 mg IV push followed by the intra venous injection of 32.1 mCi of Tc-99 Sestamibi. Time of stress injection: 947 Date: 08/26/2024 Time of stress imagin Date: 08/26/2024 Heart Rate at time of stress injection: 84 bpm. Gated Stress SPECT was performed 58 minutes after stress injection. The images were gated to evaluate regional wall motion and calculate left ventricular ejection fracti on. STRESS DETAILS Reason for Termination: Infusion complete Stress Symptoms: No chest pain or symptoms Max HR Achieved: 98 bpm % of APMHR Achieved: 71 Max Blood Pressure: 200/82 mmHg Stress ECG: NSR LEFT VENTRICLE Size: The left ventricular size is normal. Systolic Function:The left ventricular systolic function is normal. Wall Motion: No regional wall motion abnormalities noted. The left ventricular ejection fraction was calculated to be 60%.TID = . LV PERFUSION The stress images show normal perfusion. Conclusion The left ventricular size is normal. The left ventricular systolic function is normal. No regional wall motion abnormalities noted. The stress images show normal perfusion. The left ventricular ejection fraction was calculated to be 60%.
== END ==
LOC: SHCH 07:36
PROVIDERS: ATTEND Internal Medicine Cardiovascular Disease
DX: I25.119 Atherosclerotic heart disease of native coronary artery with unspecified angina pectoris (principal)
CPT/HCPCS: 78452; 93017; J2785; A9500 ×2

== ENCOUNTER → 2024-09-22 | Outpatient (CLI) | payer MEDICARE | END | disposition home or self-care (01) | LOC: RESP 12:52 | PROVIDERS: ATTEND Internal Medicine Cardiovascular Disease | DX: J40 Bronchitis, not specified as acute or chronic (principal); R07.9 Chest pain, unspecified; R06.02 Shortness of breath | CPT/HCPCS: 94060 ==